=== PATIENT | male | born 1970 | race Caucasian/White ===

== ENCOUNTER 2024-04-27 20:16 | Emergency (ER) | payer OTHER, SELFPAY ==
[2024-04-27 20:20] VITALS: BP 162/98
--- NOTE | 2024-04-27 22:51 | ED.GENMED ---
History of Present Illness
General
Chief Complaint: Skin Problem
Source: patient
Exam Limitations: none
Time Seen by Provider: 04/27/24 22:22
Nursing documentation reviewed up to this point in time: agreed with
History of Present Illness
History of Present Illness:
53 y/o M right hand dominance
was running and banged into something sharp on the garage door causing laceration left forearm
bleeding was initially not controlled but then he applied sterristrips and the wound closed and stopped bleeding
tetanus shot is 9 years
no numrnbess/intling/weakness
Past History
Past History
ED Past Medical History: HTN
Social History
Tobacco: Non-smoker
Alcohol: None
Drug: None
Personal:
Living: with family
Review of Systems
Review of Systems
Allergies reviewed?: Yes
All Other Systems: Not applicable
Phy Exam
Physical Exam
Physical Exam:
GENERAL: Alert , in no apparent distress, comfortable at rest
HEAD: NCAT
CV: 2+ radial pulses
NEUROLOGICAL: Alert and oriented, no focal neuro deficits, , 5/5 strength, sensation intact,
SKIN: Warm and dry,
8 cm laceration left forearm linear to subcutaneous
bleeding controlled
the sterristrips were pulled off by patient request to suture
msk: full rom of the elbow and wrist
PSYCH: Normal and appropriate interaction.
Course
Orders/Labs/Results
Orders:
Orders
04/27/24 22:43
Tetanus/Diphth/Acelpertussis [Adacel] 0.5 ml IM .ONCE ONE
Vital Signs
Initial and Last Documented VS:
Initial Vital Signs
Temp Pulse Resp BP Pulse Ox
98.6 F 55 20 162/98 99
04/27/24 20:20 04/27/24 20:20 04/27/24 20:20 04/27/24 20:20 04/27/24 20:20
Last Documented Vital Signs
Temp Pulse Resp BP Pulse Ox
98.6 F 55 20 162/98 99
04/27/24 20:20 04/27/24 20:20 04/27/24 20:20 04/27/24 20:20 04/27/24 20:20
Procedures
Laceration Closure
Left Lateral Arm:
Status of Wound: clean
Size of Wound in cm: 8
Description of Wound Edges: sharp and flap-well vascularized
Preparation: cleaned with saline
Anesthesia: 1% Lidocaine with epi
Revision/Debridement: routine- no revision
Wound exploration: extensive cleaning of contaminated wound
Type of Closure: single layer closure
Skin Closure Material: 5-0 nylon
Number of sutures: 12
MDM/Problems Addressed
Differential Diagnosis Includes:
laceration
MDM/Problems Addressed:
53 y/o M left forearm laceration from scraping against garage
needs tetanus
bleeding controlled
nv intact
skin closed with sutures
bacitracin dressing applied
*Critical Care Note
Total Time (30-74mins, 75-104mins- exclusive of procedures): Not Applicable
ED Attending Note
-
Portions of this chart may have been created with voice recognition software.� Occasional wrong word or��sound alike� substitutions may have occurred due to the inherent limitations of voice recognition software.
Discharge Plan
Departure
Patient Disposition: Home (Routine Discharge)
Date of Disposition: 04/27/24
Time of Disposition: 23:17
Patient with high blood pressure during this ER visit?: Yes
Condition: Fair
Discharge Problem:
Laceration
Instructions: Laceration Infection ED, BLOOD PRESSURE
Referrals:
Cosme Wallace MD [Family Provider] - Follow up in 10 days (suture removal 7-10 days)
Activity Restrictions/Additional Instructions:
KEEP THE WOUND CLEAN AND DRY FOR 24 HOURS
AFTER THAT YOU CAN GET IT WET IN THE BATH/SHOWER ONCE A DAY AND MAKE SURE IT IS CLEAN AND THERE IS NO DRIED BLOOD ON THE STITCHES
APPLY NEOSPORIN AND A BANDAID
THE STITCHES NEED TO BE REMOVED IN ABOUT 7-10 DAYS, SEE YOUR DOCTOR FOR THIS.
THE LAST DAY BEFORE STITCHES OUT, NO OINTMENT, LEAVE OPEN TO AIR
WATCH FOR SIGNS OF INFECTION AND RETURN NEEDED FOR PAIN, SWELLING, REDNESS, DRAINAGE, BLEEDING.
MOTRIN NEEDED FOR PAIN.
Interventions
Interventions:
*Risk Screen - Suicide Last Done: 04/27/24 20:20
*General Assessment Last Done: 04/27/24 20:20
*Neglect/Abuse Screening Last Done: 04/27/24 20:20
ED-Skin Assessment Last Done: 04/27/24 20:54
Discharge Date and Time
Print Language: NEPALI
[2024-04-27] MEDS: ADACEL 0.5 ML IM (23:21)
[2024-04-27 23:39] VITALS: BP 161/91
[2024-04-27 23:41] VITALS: BP 161/91
== END 2024-04-27 23:42 | disposition home or self-care (01) ==
LOC: EMR 20:16
PROVIDERS: EMERGENCY PHYSICIAN Emergency Medicine; FAMILY PHYSICIAN Internal Medicine
DX: S51.812A Laceration without foreign body of left forearm, initial encounter (principal); W22.09XA Striking against other stationary object, initial encounter; I10 Essential (primary) hypertension; Z23 Encounter for immunization
CPT/HCPCS: 99284; 12034; 90471; 90715